=== PATIENT | female | born 1960 | race Caucasian/White ===

== ENCOUNTER 2019-08-21 23:33 | Emergency (ER) | payer MEDICAID ==
[~2019-08-21] VITALS: Ht 157.5 cm; Wt 69.4 kg
[2019-08-21 23:41] VITALS: Ht 157.5 cm; Wt 69.4 kg
[2019-08-22 02:04] VITALS: BP 125/77
== END 2019-08-22 02:04 | disposition home or self-care (01) ==
LOC: ED 23:33
DX: J20.9 Acute bronchitis, unspecified (principal); F17.210 Nicotine dependence, cigarettes, uncomplicated; E11.9 Type 2 diabetes mellitus without complications
CPT/HCPCS: J7613; Q0092